=== PATIENT | male | born 1955 | race Caucasian/White ===

== ENCOUNTER → 2017-11-08 | Outpatient (CLI) | payer OTHER ==
[~2017-11-08] VITALS: Ht 180.3 cm; Wt 95.7 kg
[~2017-11-08] MED LIST: AMBIEN10 MG PO; ARIPIPRAZOLE5 MG PO; CARBIDOPA-LEVO1 EAC8 PO; CARBIDOPA/LEVO1 EACH PO; CYANOCOBALAM1000 MCG PO; LYRICA75 MG PO; NOHOMEMEDS; PAIN RELIEF325 M1 PO; PRAMIPEXOLE D0.25 MG PO; PRIMIDONE50 MG PO; SERTRALINE HCL25 MG PO; SINEMET 25-1001 EACH PO; ZOLOFT100 MG PO
== END | disposition home or self-care (01) ==
LOC: AMB 07:48
PROC: 0DBL8ZX Excision of Transverse Colon, Via Natural or Artificial Opening Endoscopic, Diagnostic (ICD-10-PCS; principal; 2017-11-08)
DX: Z12.11 Encounter for screening for malignant neoplasm of colon (principal); D12.3 Benign neoplasm of transverse colon; K57.30 Diverticulosis of large intestine without perforation or abscess without bleeding; K64.8 Other hemorrhoids; K59.09 Other constipation; G20 Parkinson's disease; E78.5 Hyperlipidemia, unspecified; R73.03 Prediabetes; F41.8 Other specified anxiety disorders; Z87.442 Personal history of urinary calculi; Z87.891 Personal history of nicotine dependence; Z83.79 Family history of other diseases of the digestive system; Z82.49 Family history of ischemic heart disease and other diseases of the circulatory system; Z82.0 Family history of epilepsy and other diseases of the nervous system; Z88.0 Allergy status to penicillin
CPT/HCPCS: 88305